=== PATIENT | female | born 1970 | race Hispanic/Latino ===

== ENCOUNTER → 2017-12-24 | Outpatient (CLI) | payer OTHER | END | disposition home or self-care (01) | LOC: OIH 11:41 | PROVIDERS: ATTEND Family Medicine | DX: Z02.71 Encounter for disability determination (principal); M54.5 Low back pain; M25.552 Pain in left hip | CPT/HCPCS: 72100; 73502 ==

== ENCOUNTER 2019-01-05 11:23 | Emergency (ER) | payer MEDICAID ==
[2019-01-05 11:36] LABS: APPEARANCE,URINE TURBID (CLEAR); BILIRUBIN,URINE MODERATE (NEGATIVE); COLOR,URINE RED (YELLOW); GLUCOSE, URINE (UA) NEGATIVE (NEGATIVE); KETONES,URINE 5 mg/dL (NEGATIVE); LEUKOCYTE ESTERASE ,URINE LARGE (NEGATIVE); NITRATE,URINE POSITIVE (NEGATIVE); OCCULT BLOOD,URINE LARGE (NEGATIVE); PH,URINE 5.5 (5.0-8.0); PROTEIN,URINE 100 mg/dL (NEGATIVE)
[2019-01-05 11:43] LABS: BACTERIA,URINE Few /HPF (None Seen); RBC,URINE TNTC /HPF (0-1); TRANSITIONAL EPI CELLS,URINE Rare /HPF (None Seen); WBC,URINE >100 /HPF (0-1)
[2019-01-05] MEDS ORDERED: NITROFURANTOIN MONOHYD/M-CRYST 100 MG CAPSULE PO ONE (11:50)
== END 2019-01-05 12:00 | disposition home or self-care (01) ==
LOC: EDH 11:23
DX: N39.0 Urinary tract infection, site not specified (principal); I10 Essential (primary) hypertension; Z90.710 Acquired absence of both cervix and uterus; Z88.1 Allergy status to other antibiotic agents
CPT/HCPCS: 81001; 87088

== ENCOUNTER → 2021-02-09 | Outpatient (CLI) | payer OTHER | END | disposition home or self-care (01) | LOC: RAH 09:16 | PROVIDERS: ATTEND Internal Medicine Gastroenterology | DX: K74.3 Primary biliary cirrhosis (principal); K76.89 Other specified diseases of liver | CPT/HCPCS: 76700 ==

== ENCOUNTER → 2022-11-12 | Outpatient (CLI) | payer OTHER | END | disposition home or self-care (01) | LOC: RAH 13:13 | PROVIDERS: ATTEND Internal Medicine | DX: Z12.31 Encounter for screening mammogram for malignant neoplasm of breast (principal) | CPT/HCPCS: 77067 ==

== ENCOUNTER 2025-05-23 22:43 | Emergency (ER) | payer OTHER ==
[~2025-05-23] VITALS: Ht 162.6 cm; Wt 81.6 kg
[~2025-05-23 22:43] MED LIST: ACET-66 PO; FAMO-136 PO; MACR100 PO; ONDA-243 PO
--- NOTE | 2025-05-23 22:49 | NUR ---
COVID AND FLU COLLECTED AND SENT
[2025-05-23 23:17] LABS: INFLUENZA TYPE A Negative For Type A (NEGATIVE); INFLUENZA TYPE B Negative For Type B (NEGATIVE)
[2025-05-23 23:18] LABS: SARS-CoV-2, RNA, NAAT POSITIVE SARS CoV-2 (NEGATIVE)
[2025-05-24] MEDS ORDERED: BENZ-39 PO (00:15)
[2025-05-24] MEDS ORDERED: AZIT250T9 PO (00:15)
[2025-05-24] MEDS ORDERED: METH4TAB3 PO (00:15)
--- NOTE | 2025-05-24 00:20 | ERN ---
General Chief Complaint: Fever Stated Complaint: COVID + Time Seen by MD: 22:57 Time Seen by Midlevel: 22:57 Source: patient History of Present Illness Initial Comments The patient is a 54-year-old female presenting to the emergency department for evaluation of flu-like symptoms that has been ongoing for the last two days. is sick with similar symptoms. She tested positive for COVID-19 so she decided to report to the ER for further evaluation. Allergies: Coded Allergies: ceftriaxone (Unverified Allergy, Unknown, 06/22/24) Home Meds Active Scripts Nitrofurantoin/Nitrofuran Mac (Macrobid) 100 Mg Cap, 100 MG PO BID for 7 Days, #14 CAP Prov:KAILEY GAINES MD 06/22/24 Ondansetron (Ondansetron Odt) 4 Mg Tab.rapdis, 4 MG PO AD PRN for NAUSEA for 5 Days, #15 TAB Prov:KAILEY GAINES MD 06/22/24 Acetaminophen (Acetaminophen) 500 Mg Tablet, 500 MG PO Q6HPRN PRN for PAIN for 5 Days, #20 TAB Prov:KAILEY GAINES MD 06/22/24 Famotidine (Pepcid) 20 Mg Tablet, 20 MG PO [id number] for 7 Days, #14 TAB Prov:KAILEY GAINES MD 06/22/24 Past Medical History Past Medical History: Asthma, Fibromyalgia, High Cholesterol, Hypertension, Liver Disease, Migraines, Renal Disese Medical History Other: NON-ALC CIRHOSIS, CHRONIC LEFT LEG PAIN Past Surgical History: Appendectomy, Hysterectomy, Cholecystectomy, Surgical History Other: HERNIA, IMPLANT FOR PAIN MANGM Social History Social History: Negative ROS Dictation CONSTITUTIONAL: Negative except for HPI HEAD/FACE: Negative except for HPI EENT: Negative except for HPI RESPIRATORY: Negative except for HPI GASTROINTESTINAL/ABDOMINAL: Negative except for HPI GENITOURINARY: Negative except for HPI MUSCULOSKELETAL: Negative except for HPI INTEGUMENTARY: Negative except for HPI NEUROLOGICAL/PSYCH: Negative except for HPI HEMATOLOGIC/LYMPHATIC: Negative except for HPI All Systems Negative, Except as noted above. 13 point review of systems assessed and all negative except for above. Physical Exam Physical Exam Dictation Vital Signs reviewed General Appearance: Alert, oriented x 3, no acute distress, well developed, nourished. Head and Face: non-traumatic. Eyes: PERRL, pink conjunctivas, eyelid no trauma, anterior chamber with arcus senilis. Ears: Pinnas intact and no signs of trauma or erythema ear canals clear and no discharge TM no erythema Nose: No discharge, no bleeding. Oropharynx: Mouth normal, tongue pink, pharynx clear,no erythema, tonsils no exudates, no abscesses noted, mucous membrane moist Neck: Supple, non-tender, no thyromegaly, no masses, no JVD, no bruits Breast:Deferred Chest:No tenderness, no crepitus, no paradoxical movement, no retractions Lungs:Clear, well-ventilated, symmetric, no rales, no wheezing, no rhonchi, no stridor, good breath sounds bilaterally Heart: Regular rate, regular rhythm, no murmur, no gallops Vascular: no peripheral edema, Abdomen: Soft, positive bowel sounds, nondistended, no guarding, nontender, no rebound, no masses no hepatomegaly, no splenomegaly, no Earl's sign, no hernias. Rectal: Deferred Genital: Deferred Neurological: Normal speech, motor function intact, sensory function intact Musculoskeletal: Neck nontender, full range of motion, back nontender, full range of motion, Extremities: nontender, full range of motion Skin: Color pink, dry, no turgor, no rash, no lacerations, no abrasions, no con tusions. Lymphatic: Deferred Results Laboratory and Microbiology Lab and Micro Result Laboratory Tests Test 05/23/25 22:42 Influenza Type A Antigen Negative For Type A Influenza Type B Antigen Negative For Type B SARS-CoV-2, RNA, NAAT POSITIVE SARS CoV-2 Labs Reviewed?: Yes MDM MDM: Differential diagnosis: Viral illness, upper respiratory infection, asthma exacerbation There are no social concerns with this patient. Prescription drug management Prescriptions will include: Medrol pack, azithromycin, Tessalon Perles Medical management and examination interpretation discussions were had by me with other qualified healthcare professionals as indicated for the patient's care. ED Course Orders Procedure Category Date Status Time Covid Rna Naat LAB 05/23/25 Complete 22:45 Influenza Type A & B, LAB 05/23/25 Complete Rapid 22:45 Dexamethasone 4mg/Ml PHA 05/24/25 Transmitted 1ml Vial (Dexametha 00:30 Vital Signs Date Time Temp Pulse Resp B/P (MAP) Pulse Ox O2 Delivery O2 Flow Rate FiO2 05/23/25 22:44 99.0 80 18 118/70 100 Room Air DX & DISP Disposition: Discharge Departure Impression: Primary Impression: COVID-19 Condition: Stable Scripts Benzonatate (Tessalon Perles) 100 Mg Cap 100 MG PO TID for cough, #30 CAP 0 Refills Prov: IRMA VELEZ 05/24/25 Methylprednisolone (Medrol) 4 Mg Tab.ds.pk 1 TAB PO AD for 6 Days, #21 TAB 0 Refills 6 on day 1 then reduce by one tablet daily until gone Prov: IRMA VELEZ 05/24/25 Azithromycin (Azithromycin) 250 Mg Tablet 1 TAB PO AD for 5 Days, #6 TAB 0 Refills 2 the first day followed by 1 for days 2-5 Prov: IRMA VELEZ 05/24/25 Referrals: JAMAL PARRISH (PCP) I have reviewed the case, and I agree with, Diagnosis and Plan I performed the substantive portion of the visit. I have reviewed and personally made and approve the management plan that is documented in the note by myself or the KER[facility]. I acknowledge for responsibility for the patient's management plan. IRMA VELEZ May 24, 2025 00:20
[2025-05-24 01:08] VITALS: BP 112/72; PULSE 78; RESP 18; TEMP 98.7; O2SAT 98
== END 2025-05-24 01:10 | disposition home or self-care (01) ==
LOC: EDH 22:43
DX: U07.1 COVID-19 (principal); J45.909 Unspecified asthma, uncomplicated; E78.00 Pure hypercholesterolemia, unspecified; I10 Essential (primary) hypertension; M79.7 Fibromyalgia; Z88.1 Allergy status to other antibiotic agents; Z90.49 Acquired absence of other specified parts of digestive tract; Z90.710 Acquired absence of both cervix and uterus
CPT/HCPCS: 99283; 87635; 87804 ×2; 96372; J1100

== ENCOUNTER 2025-07-21 19:34 | Emergency (ER) | payer OTHER ==
[~2025-07-21] VITALS: Ht 162.6 cm; Wt 82.6 kg
[~2025-07-21 19:34] MED LIST changes: +AZIT250T9 PO; +BENZ-39 PO; +METH4TAB3 PO
[2025-07-21 20:12] LABS: IMMATURE GRANULOCYTE ABSOLUTE 0.03 K/uL (0-1); NUCLEATED RED BLOOD CELLS 0.0 % (0.0-0.19); PLATELET COUNT (AUTO) 403 K/uL (130-400); RED BLOOD CELL COUNT(AUTO) 3.97 MIL/uL (4.00-5.50); RED CELL DISTRIBUTION WIDTH 13.1 % (11.0-15.5); WHITE BLOOD COUNT (AUTO) 7.9 K/uL (4.8-10.8)
[2025-07-21 20:13] LABS: APPEARANCE,URINE CLEAR (CLEAR); GLUCOSE, URINE (UA) NEGATIVE (NEGATIVE); LEUKOCYTE ESTERASE ,URINE 250 Leu/uL (NEGATIVE); NITRATE,URINE NEGATIVE (NEGATIVE); OCCULT BLOOD,URINE NEGATIVE (NEGATIVE)
[2025-07-21 20:16] LABS: ADD UA MICROSCOPIC YES
[2025-07-21 20:18] LABS: HYALINE CASTS, URINE 0-1 /LPF (0-1 /LPF); SQUAMOUS EPITHELIAL CELL,UR FEW /HPF (0-2)
[2025-07-21 20:22] LABS: CREATININE 1.0 mg/dL (0.5-1.0); GLOMERULAR FILTR. RATE CALC 67.0 mL/min (>90); GLUCOSE,RANDOM 100.0 mg/dL (70-105); SODIUM SERUM 142.0 mmol/L (136-145); UREA NITROGEN, BLOOD 17.0 mg/dL (7-18)
[2025-07-21 20:34] LABS: CREATINE KINASE, TOTAL 100.0 U/L (21-232)
[2025-07-21] MEDS ORDERED: NITR100C4 PO (20:42)
--- NOTE | 2025-07-21 20:42 | ERN ---
ED Note History of Present Illness Stated Complaint: C/O LOW B/P W/ LOW PULSE AT HOME W/HEADACHE Chief Complaint: Headache Time Seen by MD: 19:36 Dictation: This is a 54-year-old female who apparently went to see her primary care physician today and was noted to have hypotension and heart rate was in the 40s. She indicated that they checked the blood pressure multiple times in the blood pressure was reported as 102/65. She was instructed to cut the dose in half of her blood pressure medication. After she went home she was still checking her blood pressure and heart rate and her son was concerned and she came into the ER for further evaluation when she came in her blood pressure was 159/57 and her heart rate was 59. She stated that she started experiencing a headache on the right side of the head and she continued to have the headache even today. She does have a known history of migraines and she stated that this felt somewhat different. Not have any aura. She does report some nausea. No lacrimation or nasal drainage. No blurred vision diplopia motor weakness or seizure activity. No history of taking any blood thinners. No fall injury or loss of consciousness. Temperature 98.1 pulse 59 respirations 20 blood pressure 159/77 with a pulse oximetry of 100% on room air Her other chronic medical problems include diabetes mellitus, hypertension, hypercholesterolemia Allergies: Coded Allergies: ceftriaxone (Unverified Allergy, Unknown, 06/22/24) Home Meds Active Scripts Nitrofurantoin Monohyd/M-Cryst (Macrobid 100 mg Capsule) 100 Mg Capsule, 1 CAP PO BID for 7 Days, #14 CAP 0 Refills Prov:CHARLIE GOULD MD 07/21/25 Benzonatate (Tessalon Perles) 100 Mg Cap, 100 MG PO TID for cough, #30 CAP 0 Refills Prov:IRMA VELEZ 05/24/25 Methylprednisolone (Medrol) 4 Mg Tab.ds.pk, 1 TAB PO AD for 6 Days, #21 TAB 0 Refills 6 on day 1 then reduce by one tablet daily until gone Prov:IRMA VELEZ 05/24/25 Azithromycin (Azithromycin) 250 Mg Tablet, 1 TAB PO AD for 5 Days, #6 TAB 0 Refills 2 the first day followed by 1 for days 2-5 Prov:IRMA VELEZ 05/24/25 Nitrofurantoin/Nitrofuran Mac (Macrobid) 100 Mg Cap, 100 MG PO BID for 7 Days, #14 CAP Prov:KAILEY GAINES MD 06/22/24 Ondansetron (Ondansetron Odt) 4 Mg Tab.rapdis, 4 MG PO AD PRN for NAUSEA for 5 Days, #15 TAB Prov:KAILEY GAINES MD 06/22/24 Acetaminophen (Acetaminophen) 500 Mg Tablet, 500 MG PO Q6HPRN PRN for PAIN for 5 Days, #20 TAB Prov:KAILEY GAINES MD 06/22/24 Famotidine (Pepcid) 20 Mg Tablet, 20 MG PO [id number] for 7 Days, #14 TAB Prov:KAILEY GAINES MD 06/22/24 Past Medical History Past Medical History: Diabetes-Type II, High Cholesterol, Hypertension Additional Past Medical Hx: NON-ALC CIRHOSIS, CHRONIC LEFT LEG PAIN Surgical History: Appendectomy, Hysterectomy, Cholecystectomy, Other, Surgical History Other: HERNIA, IMPLANT FOR PAIN MANGM Social History: Negative RN Note Reviewed/Agreed w/PFSH: Yes Review of System Dictation Constitutional: Negative for fever,chills, and weight loss Eyes: Negative for injury, pain,redness, and discharge ENT: Negative for injury,pain or swelling Cardiovascular: Negative for chest pain, palpitations, and edema positive for labile blood pressure and heart rate Respiratory: Negative for shortness of breath, cough, and wheezing, Abdomen/GI: Negative for abdominal pain, nausea, vomiting, diarrhea, and constipation Back: Negative for injury and pain : Negative for injury, bleeding and discharge MS/Extremity: Negative for injury and deformity Skin: Negative for rash, and discoloration Neuro: Positive for right side headache, denied weakness, numbness, tingling, and seizure Psych: Negative for suicide ideation, homicidal ideation, and hallucinations Initial Vital Sign VS Vital Signs Date Time Temp Pulse Resp B/P (MAP) Pulse Ox O2 Delivery O2 Flow Rate FiO2 07/21/25 19:35 98.1 59 20 159/77 100 Room Air Physical Exam Dictation General: awake, alert, NAD morbidly obese Head/Face: Normocephalic, atraumatic Eyes: PERRL, EOMI, vision at baseline ENT: oral cavity clear, TMs clear, no signs of infection Neck: Trachea midline, supple, no nuchal rigidity Cardiovascular: RRR, normal S1/S2, No MRGs, no JVD Respiratory: CTAB, no respiratory distress, No rales or wheezes Abdomen: Soft, non-tender, non-distended, normal bowel sounds, no guarding or rebound. Skin: Warm, dry, normal turgor, no rash MS/Extremity: Pulses equal, no cyanosis, neurovascular intact, FROM Neuro: COAx4, GCS 15, strength 5/5, CN 2-12 intact, normal cerebellar exam, normal gait, Psych: Normal behavior, mood, and affect normal Extremities-trace edema without any palpable cords, Homans sign is negative Results (Laboratory/Radiology) Laboratory/Radiology Laboratory Tests Test 07/21/25 20:00 07/21/25 20:05 White Blood Count 7.9 K/uL (4.8-10.8) Red Blood Count 3.97 MIL/uL (4.00-5.50) L Hemoglobin 10.8 g/dL (12.0-16.0) L Hematocrit 36.1 % (36-48) Mean Corpuscular Volume 90.9 fL (79-99) Mean Corpuscular Hemoglobin 27.2 pg (27.0-33.0) Mean Corpuscular Hemoglobin Concent 29.9 g/dL (32.0-36.0) L Red Cell Distribution Width 13.1 % (11.0-15.5) Platelet Count 403 K/uL (130-400) H Mean Platelet Volume 9.6 fL (7.5-10.5) Immature Granulocyte % (Auto) 0.4 % (0-1) Neutrophils (%) (Auto) 55.7 % (40.0-77.0) Lymphocytes (%) (Auto) 33.6 % (21.0-51.0) Monocytes (%) (Auto) 6.6 % (3.0-13.0) Eosinophils (%) (Auto) 2.9 % (0.0-8.0) Basophils (%) (Auto) 0.8 % (0.0-5.0) Neutrophils # (Auto) 4.4 K/uL (1.8-7.7) Lymphocytes # (Auto) 2.7 K/uL (1.0-4.8) Monocytes # (Auto) 0.5 K/uL (0.1-1.0) Eosinophils # (Auto) 0.23 K/uL (0.00-0.70) Basophils # (Auto) 0.06 K/uL (0.00-0.20) Absolute Immature Granulocyte (auto 0.03 K/uL (0-1) Nucleated Red Blood Cells 0.0 % (0.0-0.19) Red Blood Cell Morphology See comments Sodium Level 142 mmol/L (136-145) Potassium Level 4.0 mmol/L (3.5-5.1) Chloride Level 107 mmol/L (101-111) Carbon Dioxide Level 26 mmol/L (21-32) Blood Urea Nitrogen 17 mg/dL (7-18) Creatinine 1.0 mg/dL (0.5-1.0) Glomerular Filtration Rate Calc 67 mL/min (>90) Random Glucose 100 mg/dL (70-105) Total Calcium 8.8 mg/dL (8.5-10.1) Total Creatine Kinase 100 U/L (21-232) # Troponin I High Sensitivity 14.2 ng/L (4-50) Urine Color LIGHT-YELLOW (YELLOW) Urine Appearance CLEAR (CLEAR) Urine pH 5.5 (5.0-8.0) Urine Specific [place] 1.021 (1.001-1.031) Urine Protein NEGATIVE mg/dL (NEGATIVE) Urine Glucose (UA) NEGATIVE mg/dL (NEGATIVE) Urine Ketones NEGATIVE mg/dL (NEGATIVE) Urine Occult Blood NEGATIVE (NEGATIVE) Urine Nitrate NEGATIVE (NEGATIVE) Urine Bilirubin NEGATIVE mg/dL (NEGATIVE) Urine Urobilinogen 0.2 mg/dL (0.2-1.0) Urine Leukocyte Esterase 250 [place]/uL (NEGATIVE) H Urine RBC 2-5 /HPF (0-1) H Urine WBC 11-25 /HPF (0-1) H Urine Squamous Epithelial Cells FEW /HPF (0-2) Urine Bacteria RARE /HPF (None Seen) Urine Hyaline Casts 0-1 /LPF (0-1 /LPF) Labs Reviewed?: Yes CT Scan Comment: REASON: right sided headache ORDERING PHYSICIAN: CHARLIE GOULD MD PROCEDURE: HEAD WO - CT HEAD/BRAIN W/O CONTRAST EXAM: CT Head Without IV contrast. CLINICAL HISTORY: Right-sided headache. TECHNIQUE: Axial computed tomography images of the head/brain without intravenous contrast. COMPARISON: None provided. FINDINGS: BRAIN: No evidence of acute hemorrhage. No mass lesion. No CT evidence for acute territorial infarct. No midline shift or extra-axial collections. VENTRICLES: Mild asymmetric enlargement of the right lateral ventricle without any underlying structural abnormality. No hydrocephalus. ORBITS: The orbits are unremarkable. SINUSES AND MASTOIDS: The paranasal sinuses and mastoid air cells are clear. BONES: No fracture. SOFT TISSUES: Unremarkable. IMPRESSION: No acute intracranial abnormality. Mild asymmetric enlargement of the right lateral ventricle without an underlying structural cause, a normal anatomic variant. Recommend MRI Brain if symptoms persist or worsen for further evaluation. /[facility] ED Course ED Course Orders Procedure Category Date Status Time Cardiac Panel LAB 07/21/25 Complete 19:44 Cbc With Differential LAB 07/21/25 Complete 19:44 Basic Metabolic Panel LAB 07/21/25 Complete 19:44 Urinalysis Profile LAB 07/21/25 Complete 19:44 Culture Urine SEBASTIAN 07/21/25 In Process 20:16 Ct Head/Brain W/O CT 07/21/25 Resulted Contrast 20:58 Ketorolac 60mg/2ml PHA 07/21/25 Complete (Toradol 60mg/2ml) 22:30 Current Medications Medications (Trade) Dose Ordered Sig/Jose Antonio Route PRN Reason Start Time Stop Time Status Last Admin Dose Admin Ketorolac Tromethamine (toRADol 60MG/ 2ML) 30 mg ONCE ONCE IM 07/21/25 22:30 07/21/25 22:31 DC Vital Signs Date Time Temp Pulse Resp B/P (MAP) Pulse Ox O2 Delivery O2 Flow Rate FiO2 07/21/25 19:35 98.1 59 20 159/77 100 Room Air We will perform diagnostic labs, advanced imaging and administer medications according to the patient's complaint. Once the results are available, will review and personally interpreted the labs to rule out any acute life- threatening emergency the trach require immediate intervention and treatment. I will then re-evaluate the patient after treatment and diagnostic exams have return to determine whether the patient requires any further testing, can safely be discharged home or need further admission to hospital for additional treatment and evaluation. Medical Decision Making MDM Differential diagnosis: Tension headache, migraine headache, cluster headache, vascular headache, pseudotumor cerebri, arthritis of the TMJ This is a 54-year-old female who apparently went to see her primary care ph ysician today and was noted to have hypotension and heart rate was in the 40s. She indicated that they checked the blood pressure multiple times in the blood pressure was reported as 102/65. She was instructed to cut the dose in half of her blood pressure medication. After she went home she was still checking her blood pressure and heart rate and her son was concerned and she came into the ER for further evaluation when she came in her blood pressure was 159/57 and her heart rate was 59. She stated that she started experiencing a headache on the right side of the head and she continued to have the headache even today. She does have a known history of migraines and she stated that this felt somewhat different. Not have any aura. She does report some nausea. No lacrimation or nasal drainage. No blurred vision diplopia motor weakness or seizure activity. No history of taking any blood thinners. No fall injury or loss of consciousness. Temperature 98.1 pulse 59 respirations 20 blood pressure 159/77 with a pulse oximetry of 100% on room air Her other chronic medical problems include diabetes mellitus, hypertension, hypercholesterolemia 8:30 p.m. labs reviewed CBC is with a normal limits except for a hemoglobin of 10.8 BNP 7 is normal. Total CK and troponins are negative. 9:[address] scan of the head without contrast is pending Rationale: Tests considered and ordered secondary to shared decision making include: Previous outside records reviewed: Old ER visits. Risk of complication and/or morbidity or mortality of patient management: None Medications-Per medication reconciliation Need for hospitalization: Patient does not meet criteria for hospitalization. Need for emergency major/minor surgery: No There are no social concerns with this patient. Prescription drug management Prescriptions will include symptomatic care Patient's prior external medical records from other ER visits were reviewed by me as indicated. Prior testing and results from previous visits were reviewed. Prior tests were taken into account with medical decision making and resource utilization, independent historian/historians were used to obtain complete m edical history. I independently interpreted the test that were performed, results were reviewed by me and considered findings on radiology if ordered. Medical management and examination interpretation discussions were had by me with other qualified healthcare professionals as indicated for the patient's care. Problem List Problem List: (1) Tension headache (2) Labile hypertension (3) UTI (urinary tract infection) DX & DISP Disposition: Discharge Departure Impression: Primary Impression: Labile hypertension Additional Impressions: UTI (urinary tract infection), Tension headache Condition: Stable Scripts Nitrofurantoin Monohyd/M-Cryst (Macrobid 100 mg Capsule) 100 Mg Capsule 1 CAP PO BID for 7 Days, #14 CAP 0 Refills Prov: CHARLIE GOULD MD 07/21/25 Additional Instructions: Patient and the caregiver have been informed of all the diagnostic tests and the imaging conducted during the today's visit to the emergency room and has verbalized understanding of the results I have personally reviewed and interpreted all diagnostic exams performed here in the ER today as well as the vital signs documented by the nursing staff. The patient is now being discharged to home and should follow up with the primary care physician or the specialist as directed by the ER staff. If headache persists, patient to follow up with primary care further neurology evaluation Referrals: JAMAL PARRISH (PCP) CHARLIE GOULD MD Jul 21, 2025 20:42
--- NOTE | 2025-07-21 22:30 | HMCIMG ---
EXAM: CT Head Without IV contrast. CLINICAL HISTORY: Right-sided headache. TECHNIQUE: Axial computed tomography images of the head/brain without intravenous contrast. COMPARISON: None provided. FINDINGS: BRAIN: No evidence of acute hemorrhage. No mass lesion. No CT evidence for acute territorial infarct. No midline shift or extra-axial collections. VENTRICLES: Mild asymmetric enlargement of the right lateral ventricle without any underlying structural abnormality. No hydrocephalus. ORBITS: The orbits are unremarkable. SINUSES AND MASTOIDS: The paranasal sinuses and mastoid air cells are clear. BONES: No fracture. SOFT TISSUES: Unremarkable. IMPRESSION: No acute intracranial abnormality. Mild asymmetric enlargement of the right lateral ventricle without an underlying structural cause, a normal anatomic variant. Recommend MRI Brain if symptoms persist or worsen for further evaluation. /[facility]
[2025-07-21 22:59] VITALS: BP 142/76; PULSE 62; RESP 16; TEMP 98.1; O2SAT 100
== END 2025-07-21 23:25 | disposition home or self-care (01) ==
LOC: EDH 19:34
DX: G44.209 Tension-type headache, unspecified, not intractable (principal); I10 Essential (primary) hypertension; N39.0 Urinary tract infection, site not specified; E11.9 Type 2 diabetes mellitus without complications; E78.00 Pure hypercholesterolemia, unspecified; Z90.710 Acquired absence of both cervix and uterus; Z90.49 Acquired absence of other specified parts of digestive tract; Z98.890 Other specified postprocedural states; Z88.8 Allergy status to other drugs, medicaments and biological substances
CPT/HCPCS: 99285; 70450; 82550; 84484; 80048; 85025; 87086 ×2; 87186; 81001; 36415; 96372; J1885

== ENCOUNTER 2025-08-02 10:51 | Emergency (ER) | payer OTHER ==
[~2025-08-02] VITALS: Ht 162.6 cm; Wt 81.6 kg
[~2025-08-02 10:51] MED LIST changes: +NITR100C4 PO
[2025-08-02 11:38] LABS: IMMATURE GRANULOCYTE ABSOLUTE 0.02 K/uL (0-1); NUCLEATED RED BLOOD CELLS 0.0 % (0.0-0.19); PLATELET COUNT (AUTO) 428 K/uL (130-400); RED BLOOD CELL COUNT(AUTO) 4.32 MIL/uL (4.00-5.50); RED CELL DISTRIBUTION WIDTH 12.8 % (11.0-15.5); WHITE BLOOD COUNT (AUTO) 8.5 K/uL (4.8-10.8)
[2025-08-02 11:47] LABS: CREATININE 1.0 mg/dL (0.5-1.0); GLOMERULAR FILTR. RATE CALC 67.0 mL/min (>90); GLUCOSE,RANDOM 102.0 mg/dL (70-105); SODIUM SERUM 141.0 mmol/L (136-145); UREA NITROGEN, BLOOD 14.0 mg/dL (7-18)
[2025-08-02 11:51] LABS: ASPARTATE AMINOTRANSFERASE 19.0 U/L (10-37); TOTAL PROTEIN, SERUM 8.4 g/dL (6.0-8.3)
--- NOTE | 2025-08-02 12:29 | ERN ---
ED Note History of Present Illness Stated Complaint: N/V/D Chief Complaint: Nausea,Vomiting,Diarrhea Time Seen by MD: 10:56 Time Seen by Midlevel: 10:58 Dictation: 54-year-old female with a history of cholesterol, hypertension and then umbilical hernia coming in with complaints of nausea, vomiting diarrhea for three days. Has a surgical history of cholecystectomy and appendectomy. Allergies: Coded Allergies: ceftriaxone (Unverified Allergy, Unknown, 06/22/24) Home Meds Active Scripts Nitrofurantoin Monohyd/M-Cryst (Macrobid 100 mg Capsule) 100 Mg Capsule, 1 CAP PO BID for 7 Days, #14 CAP 0 Refills Prov:CHARLIE GOULD MD 07/21/25 Benzonatate (Tessalon Perles) 100 Mg Cap, 100 MG PO TID for cough, #30 CAP 0 Refills Prov:IRMA VELEZ [facility] 05/24/25 Methylprednisolone (Medrol) 4 Mg Tab.ds.pk, 1 TAB PO AD for 6 Days, #21 TAB 0 Refills 6 on day 1 then reduce by one tablet daily until gone Prov:IRMA VELEZ [facility] 05/24/25 Azithromycin (Azithromycin) 250 Mg Tablet, 1 TAB PO AD for 5 Days, #6 TAB 0 Refills 2 the first day followed by 1 for days 2-5 Prov:IRMA VELEZ [facility] 05/24/25 Nitrofurantoin/Nitrofuran Mac (Macrobid) 100 Mg Cap, 100 MG PO BID for 7 Days, #14 CAP Prov:KAILEY GAINES MD 06/22/24 Ondansetron (Ondansetron Odt) 4 Mg Tab.rapdis, 4 MG PO AD PRN for NAUSEA for 5 Days, #15 TAB Prov:KAILEY GAINES MD 06/22/24 Acetaminophen (Acetaminophen) 500 Mg Tablet, 500 MG PO Q6HPRN PRN for PAIN for 5 Days, #20 TAB Prov:KAILEY GAINES MD 06/22/24 Famotidine (Pepcid) 20 Mg Tablet, 20 MG PO [id number] for 7 Days, #14 TAB Prov:KAILEY GAINES MD 06/22/24 Past Medical History Past Medical History: Diabetes-Type II, High Cholesterol, Hypertension Additional Past Medical Hx: NON-ALC CIRHOSIS, CHRONIC LEFT LEG PAIN Surgical History: Appendectomy, Hysterectomy, Cholecystectomy, Other, Surgical History Other: HERNIA, IMPLANT FOR PAIN MANGM Social History: Negative Review of System Dictation Constitutional: Negative for fever,chills, and weight loss Eyes: Negative for injury, pain,redness, and discharge ENT: Negative for injury,pain or swelling Cardiovascular: Negative for chest pain, palpitations, and edema Respiratory: Negative for shortness of breath, cough, and wheezing, Abdomen/GI: Complaining of nausea and vomiting and diarrhea Back: Negative for injury and pain : Negative for injury, bleeding and discharge MS/Extremity: Negative for injury and deformity Skin: Negative for rash, and discoloration Neuro: Negative for headache, weakness, numbness, tingling, and seizure Psych: Negative for suicide ideation, homicidal ideation, and hallucinations Review of Systems: was completed Initial Vital Sign VS Vital Signs Date Time Temp Pulse Resp B/P (MAP) Pulse Ox O2 Delivery O2 Flow Rate FiO2 08/02/25 10:53 97.9 66 16 147/76 100 Room Air 0 Physical Exam Dictation General: awake, alert, NAD Head/Face: Normocephalic, atraumatic Eyes: PERRL, EOMI, vision at baseline ENT: oral cavity clear, TMs clear, no signs of infection Neck: Trachea midline, supple, no nuchal rigidity Cardiovascular: RRR, normal S1/S2, No MRGs, no JVD Respiratory: CTAB, no respiratory distress, No rales or wheezes Abdomen: Soft, non-tender, non-distended, normal bowel sounds, no guarding or rebound. Skin: Warm, dry, normal turgor, no rash MS/Extremity: Pulses equal, no cyanosis, neurovascular intact, FROM Neuro: COAx4, GCS 15, strength 5/5, CN 2-12 intact, normal cerebellar exam, normal gait, Psych: Normal behavior, mood, and affect normal Results (Laboratory/Radiology) Laboratory/Radiology Laboratory Tests Test 08/02/25 11:31 White Blood Count 8.5 K/uL (4.8-10.8) Red Blood Count 4.32 MIL/uL (4.00-5.50) Hemoglobin 11.9 g/dL (12.0-16.0) L Hematocrit 38.5 % (36-48) Mean Corpuscular Volume 89.1 fL (79-99) Mean Corpuscular Hemoglobin 27.5 pg (27.0-33.0) Mean Corpuscular Hemoglobin Concent 30.9 g/dL (32.0-36.0) L Red Cell Distribution Width 12.8 % (11.0-15.5) Platelet Count 428 K/uL (130-400) H Mean Platelet Volume 9.4 fL (7.5-10.5) Immature Granulocyte % (Auto) 0.2 % (0-1) Neutrophils (%) (Auto) 69.1 % (40.0-77.0) Lymphocytes (%) (Auto) 22.2 % (21.0-51.0) Monocytes (%) (Auto) 6.4 % (3.0-13.0) Eosinophils (%) (Auto) 1.7 % (0.0-8.0) Basophils (%) (Auto) 0.4 % (0.0-5.0) Neutrophils # (Auto) 5.9 K/uL (1.8-7.7) Lymphocytes # (Auto) 1.9 K/uL (1.0-4.8) Monocytes # (Auto) 0.5 K/uL (0.1-1.0) Eosinophils # (Auto) 0.14 K/uL (0.00-0.70) Basophils # (Auto) 0.03 K/uL (0.00-0.20) Absolute Immature Granulocyte (auto 0.02 K/uL (0-1) Nucleated Red Blood Cells 0.0 % (0.0-0.19) Sodium Level 141 mmol/L (136-145) Potassium Level 4.0 mmol/L (3.5-5.1) Chloride Level 106 mmol/L (101-111) Carbon Dioxide Level 26 mmol/L (21-32) Blood Urea Nitrogen 14 mg/dL (7-18) Creatinine 1.0 mg/dL (0.5-1.0) Glomerular Filtration Rate Calc 67 mL/min (>90) Random Glucose 102 mg/dL (70-105) Total Calcium 9.2 mg/dL (8.5-10.1) Total Bilirubin 0.3 mg/dL (0.2-1.0) Direct Bilirubin 0.1 mg/dL (0.0-0.3) Aspartate Amino Transf (AST/SGOT) 19 U/L (10-37) Alanine Aminotransferase (ALT/SGPT) 22 U/L (12-78) Alkaline Phosphatase 106 U/L (50-136) Total Protein 8.4 g/dL (6.0-8.3) H Albumin 4.0 g/dL (3.5-5.0) Lipase 27 U/L (16-77) Labs Reviewed?: Yes ED Course ED Course Orders Procedure Category Date Status Time Cbc With Differential LAB 08/02/25 In Process 11:15 Basic Metabolic Panel LAB 08/02/25 Complete 11:15 Hepatic Function Panel LAB 08/02/25 Complete 11:15 Lipase LAB 08/02/25 Complete 11:15 Ondansetron 4mg Inj PHA 08/02/25 Complete (Zofran 4mg Inj) 11:30 0.9%Nacl 1000ml (Ns PHA 08/02/25 Complete 1000ml) 11:15 Urinalysis Profile LAB 08/02/25 Logged 11:41 Current Medications Medications (Trade) Dose Ordered Sig/Jose Antonio Route PRN Reason Start Time Stop Time Status Last Admin Dose Admin Ondansetron HCl (zoFRAN 4MG INJ) 4 mg ONCE ONCE IVP 08/02/25 11:30 08/02/25 11:31 DC Sodium Chloride 1,000 ml @ 1,000 mls/hr Q1H STAT IV 08/02/25 11:15 08/02/25 12:14 DC Vital Signs Date Time Temp Pulse Resp B/P (MAP) Pulse Ox O2 Delivery O2 Flow Rate FiO2 08/02/25 10:53 97.9 66 16 147/76 100 Room Air 0 Medical Decision Making MDM MDM: 54-year-old female with a history of cholesterol, hypertension and then umbilical hernia coming in with complaints of nausea, vomiting diarrhea for three days. Has a surgical history of cholecystectomy and appendectomy. All blood work is unremarkable. No transaminitis, the lipase within normal range. No evidence of dehydration. Electrolyte are within normal range. No leukocytosis. More than likely patient has gastroenteritis. Discussed with the patient that she needs to follow up outpatient with PCP. Return to the hospital as needed. Stay hydrated and start with a bland diet. Differential diagnosis: gastroenteritis, dehydration, electrolyte abnormality, pancreatitis Rationale: Tests considered and ordered secondary to shared decision making include: Previous outside records reviewed: Old ER visits. Risk of complication and/or morbidity or mortality of patient management: None Medications-Per medication reconciliation Need for hospitalization: Patient does not meet criteria for hospitalization. Need for emergency major/minor surgery: No There are no social concerns with this patient. Prescription drug management Prescriptions will include symptomatic care Patient's prior external medical records from other ER visits were reviewed by me as indicated. Prior testing and results from previous visits were reviewed. Prior tests were taken into account with medical decision making and resource utilization, independent historian/historians were used to obtain complete medical history. I independently interpreted the test that were performed, results were reviewed by me and considered findings on radiology if ordered. Medical management and examination interpretation discussions were had by me with other qualified healthcare professionals as indicated for the patient's care. DX & DISP Disposition: Discharge Departure Impression: Primary Impression: Gastroenteritis Condition: Stable Scripts Famotidine (Pepcid) 20 Mg Tablet 1 TAB PO BID for 7 Days, #14 TAB 0 Refills Prov: WALESKA WHARTON CNP 08/02/25 Ondansetron (Ondansetron Odt) 4 Mg Tab.rapdis 4 MG PO Q6HPRN PRN for nausea, #16 TAB 0 Refills Prov: WALESKA WHARTON CNP 08/02/25 Additional Instructions: Your blood work is normal. Your liver and pancreas are normal. Start a bland diet advance as tolerated. Follow up with your primary care doctor Referrals: JAMAL PARRISH (PCP) Time of Disposition: 12:37 I have reviewed the case, and I agree with, Diagnosis and Plan WALESKA WHARTON CNP Aug 02, 2025 12:29
[2025-08-02] MEDS ORDERED: ONDA-243 PO (12:37)
[2025-08-02] MEDS ORDERED: FAMO-136 PO (12:37)
[2025-08-02 12:42] LABS: APPEARANCE,URINE CLEAR (CLEAR); GLUCOSE, URINE (UA) NEGATIVE (NEGATIVE); LEUKOCYTE ESTERASE ,URINE NEGATIVE Leu/uL (NEGATIVE); NITRATE,URINE NEGATIVE (NEGATIVE); OCCULT BLOOD,URINE NEGATIVE (NEGATIVE)
[2025-08-02 12:49] LABS: ADD UA MICROSCOPIC NO
[2025-08-02] MEDS: 0.9%NACL 1000ML 1,000 ML IV STA (14:15)
[2025-08-02 15:31] VITALS: BP 124/70; PULSE 68; RESP 16; TEMP 97.9; O2SAT 100
== END 2025-08-02 15:31 | disposition home or self-care (01) ==
LOC: EDH 10:51
DX: K52.9 Noninfective gastroenteritis and colitis, unspecified (principal); R11.2 Nausea with vomiting, unspecified; I10 Essential (primary) hypertension; E11.9 Type 2 diabetes mellitus without complications; E78.00 Pure hypercholesterolemia, unspecified; Z88.1 Allergy status to other antibiotic agents; Z90.49 Acquired absence of other specified parts of digestive tract; Z90.710 Acquired absence of both cervix and uterus; Z98.890 Other specified postprocedural states
CPT/HCPCS: 99283; 96374; 80076; 80048; 83690; 85025; 81003; 36415; J7030; J2405